=== PATIENT | male | born 1990 | race African-American/Black ===

== ENCOUNTER 2017-11-18 23:36 | Emergency (ER) | payer MEDICAID ==
[~2017-11-18] VITALS: Ht 177.8 cm; Wt 104.8 kg
[2017-11-18 23:40] VITALS: Ht 177.8 cm; Wt 104.8 kg
[2017-11-19 01:05] VITALS: BP 118/81
== END 2017-11-19 01:05 | disposition home or self-care (01) ==
LOC: ED 23:36
DX: S61.212D Laceration without foreign body of right middle finger without damage to nail, subsequent encounter (principal); J45.909 Unspecified asthma, uncomplicated; X58.XXXD Exposure to other specified factors, subsequent encounter